=== PATIENT | female | born 1965 | race Caucasian/White ===

== ENCOUNTER 2018-04-27 23:38 | Emergency (ER) | payer BC ==
[2018-04-27] MEDS ORDERED: Cyclobenzaprine 10 MG Tab PO ONE (23:39)
[2018-04-27 23:49] VITALS: BP 147/90
--- NOTE | 2018-04-28 00:06 | EDM.PDOC ---
ED HPI GENERAL MEDICAL PROBLEM - General Chief Complaint: Upper Extremity Injury/Pain Stated Complaint: left forearm injury Time Seen by Provider: 04/27/18 23:45 Source of Information: Reports: Patient History Limitations: Reports: No Limitations - History of Present Illness INITIAL COMMENTS - FREE TEXT/NARRATIVE: Pt. states she fell in the dark, landing on her left hand/ wrist. Now having left wrist/ hand pain. Does not want pain medication, states she will use " wild lettuce." Onset: Today, Sudden Onset Date: 04/27/18 Onset Time: 23:00 Duration: Hour(s):, Constant Location: Reports: Upper Extremity, Left Quality: Reports: Ache, Throbbing Severity: Moderate Improves with: Reports: Cold Therapy, Immobilization Worsens with: Reports: Movement Context: Reports: Other (fall) Associated Symptoms: Reports: No Other Symptoms Left Arm Pain Score (Numeric/FACES): 8 - Related Data Allergies Allergy/AdvReac Type Severity Reaction Status Date / Time aspirin Allergy Bleeding Verified 04/27/18 23:46 ciprofloxacin Allergy Weakness Verified 04/27/18 23:46 corn Allergy Shortness Verified 04/27/18 23:46 of Breath lactase [From Dairy Aid] Allergy Cannot Verified 04/27/18 23:46 Remember levofloxacin [From Levaquin] Allergy Cannot Verified 04/27/18 23:46 Remember metronidazole [From Flagyl] Allergy Cannot Verified 04/27/18 23:46 Remember moxifloxacin HCl Allergy Weakness Verified 04/27/18 23:46 [From Avelox] wheat Allergy Seizure Verified 04/27/18 23:47 latex gloves Allergy Rash Uncoded 04/27/18 23:46 Home Meds: Home Meds Thyroid,Pork [[place] Thyroid] 180 mg PO DAILY 04/27/18 [History] Past Medical History HEENT History: Reports: Allergic Rhinitis, Cataract, Glaucoma, Impaired Vision, Sinusitis Cardiovascular History: Reports: Heart Murmur, Other (See Below) Other Cardiovascular History: "BAD VALVE AT ONE POINT" RENE LEON Respiratory History: Reports: Asthma, Pneumonia, Recurrent, SOB Gastrointestinal History: Reports: Celiac Disease, Chronic Constipation, Chronic Diarrhea, Other (See Below) Other Gastrointestinal History: HERNIA VP PROJECT History: Reports: Endometriosis Musculoskeletal History: Reports: Back Pain, Chronic, Fracture, Gout, Neck Pain , Chronic Neurological History: Reports: Migraines, Seizure Psychiatric History: Reports: Other (See Below) Other Psychiatric History: "HOPELESS SOMETIMES' Endocrine/Metabolic History: Reports: Hypothyroidism Hematologic History: Reports: B12 Deficiency Oncologic (Cancer) History: Reports: Brain, Uterine Dermatologic History: Reports: Other (See Below) Other Dermatologic History: RASHES - Infectious Disease History Infectious Disease History: Reports: Influenza - Past Surgical History GI Surgical History: Reports: Appendectomy, Hernia, Abdominal Neurological Surgical History: Reports: C-Spine, Discectomy, Laminectomy Social & Family History - Tobacco Use Smoking Status *Q: Never Smoker Second Hand Smoke Exposure: No Review of Systems - Review of Systems Review Of Systems: See Below Constitutional: Reports: No Symptoms Eyes: Reports: No Symptoms Ears: Reports: No Symptoms Nose: Reports: No Symptoms Mouth/Throat: Reports: No Symptoms Respiratory: Reports: No Symptoms Cardiovascular: Reports: No Symptoms GI/Abdominal: Reports: No Symptoms Genitourinary: Reports: No Symptoms Musculoskeletal: Reports: Shoulder Pain, Arm Pain, Joint Pain Skin: Reports: No Symptoms Neurological: Reports: No Symptoms Psychiatric: Reports: No Symptoms ED EXAM, GENERAL - Physical Exam Exam: See Below Exam Limited By: No Limitations General Appearance: Alert, WD/WN, No Apparent Distress Nose: Normal Inspection, Normal Mucosa, No Blood Throat/Mouth: Normal Inspection, Normal Lips, Normal Teeth, Normal Gums, Normal Oropharynx, Normal Voice Head: Atraumatic, Normocephalic Neck: Normal Inspection, Supple, Non-Tender Respiratory/Chest: No Respiratory Distress, Lungs Clear, Normal Breath Sounds, No Accessory Muscle Use, Chest Non-Tender Cardiovascular: Normal Peripheral Pulses, Regular Rate, Rhythm, No Edema Peripheral Pulses: 2+: Radial (L) GI/Abdominal: Normal Bowel Sounds, Soft, Non-Tender, No Organomegaly (Female) Exam: Deferred Rectal (Female) Exam: Deferred Extremities: Normal Inspection, Normal Capillary Refill, Limited Range of Motion , Other (tenderness left forearm/ wrist with limited ROM at wrist due to increased pain; able to make a fist and move all fingers; radial pulse 2+; able to flex shoulder and supinate forearm.) Neurological: Alert, Oriented, CN II-XII Intact, Normal Cognition, Normal Gait, No Motor/Sensory Deficits Psychiatric: Normal Affect, Normal Mood Skin Exam: Warm, Dry, Intact, Normal Color Course - Vital Signs Last Recorded V/S: Last Vital Signs Temp 35.7 C 04/27/18 23:39 Pulse 74 04/27/18 23:48 Resp 20 04/27/18 23:39 BP 147/90 H 04/27/18 23:48 Pulse Ox 99 04/27/18 23:39 - Orders/Labs/Meds Orders: Active Orders 24 hr Category Date Time Status Forearm 2V Lt [CR] Stat Exams 04/28/18 00:01 Ordered Humerus Lt [CR] Stat Exams 04/28/18 00:05 Ordered Shoulder Comp Lt [CR] Stat Exams 04/28/18 00:05 Ordered Wrist Comp Min 3V Lt [CR] Stat Exams 04/28/18 00:02 Ordered DRUG SCREEN URINE BIORAD [URCHEM] Stat Lab 04/28/18 00:29 Ordered Labs: Laboratory Tests 04/28/18 Range/Units 00:29 Urine Opiates Screen Negative (NEGATIVE) Ur Oxycodone Screen Negative (NEGATIVE) Urine Methadone Screen Negative (NEGATIVE) Ur Barbiturates Screen Negative (NEGATIVE) U Tricyclic Antidepress Negative (NEGATIVE) Ur Phencyclidine Scrn Negative (NEGATIVE) Ur Amphetamine Screen Negative (NEGATIVE) U Methamphetamines Scrn Negative (NEGATIVE) Urine MDMA Screen Negative (NEGATIVE) U Benzodiazepines Scrn Negative (NEGATIVE) Urine Cocaine Screen Negative (NEGATIVE) U Marijuana (THC) Screen Negative (NEGATIVE) Meds: Medications Discontinued Medications Generic Name Dose Route Start Last Admin Trade Name Freq PRN Reason Stop Dose Admin Cyclobenzaprine HCl 10 mg 04/28/18 01:05 Flexeril PO 04/28/18 01:06 ONETIME ONE Cyclobenzaprine HCl 2 packet 04/28/18 01:43 Take Home: Cyclobenzaprine 10 Mg, 4 Tab Pack PO 04/28/18 01:44 ONETIME ONE - Re-Assessments/Exams Free Text/Narrative Re-Assessment/Exam: stable; neurovascular intact 04/28/18 01:50 Departure - Departure Time of Disposition: 01:51 Disposition: Home, Self-Care 01 Condition: Good Clinical Impression: Fracture of radius - Discharge Information *PRESCRIPTION DRUG MONITORING PROGRAM REVIEWED*: No *COPY OF PRESCRIPTION DRUG MONITORING REPORT IN PATIENT AYDIN: No Instructions: Radial Fracture Referrals: Lukasz Youngblood MD [Primary Care Provider] - Forms: ED Department Discharge Additional Instructions: Follow up with orthopedics on Sunday. Leave splint on until seen by Orthopedics. - Problem List Review Problem List Initiated/Reviewed/Updated: Yes - My Orders Last 24 Hours: My Active Orders 04/28/18 00:01 Forearm 2V Lt [CR] Stat 04/28/18 00:02 Wrist Comp Min 3V Lt [CR] Stat 04/28/18 00:05 Humerus Lt [CR] Stat Shoulder Comp Lt [CR] Stat 04/28/18 00:29 DRUG SCREEN URINE BIORAD [URCHEM] Stat - Assessment/Plan Last 24 Hours: My Active Orders 04/28/18 00:01 Forearm 2V Lt [CR] Stat 04/28/18 00:02 Wrist Comp Min 3V Lt [CR] Stat 04/28/18 00:05 Humerus Lt [CR] Stat Shoulder Comp Lt [CR] Stat 04/28/18 00:29 DRUG SCREEN URINE BIORAD [URCHEM] Stat Assessment:: Left distal radius fracture Sugartong splint applied to left wrist/ forearm; neurovascular intact. Discussed findings of xray with patient and instructed her to follow up with Orthopedics on Sunday. Pt. verbalizes understanding. Plan: Patient to follow up with orthopedics on Sunday. Take Flexeril as p.o. tid as needed for spasms. Ice arm/ wrist 4 times daily.
[2018-04-28] MEDS ORDERED: Cyclobenzaprine 10 MG Tab PO ONE (01:05)
[2018-04-28] MEDS ORDERED: Take Home: Cyclobenzaprine 10 MG Tab, 4 Tab Pack PO ONE (01:43)
== END 2018-04-28 04:03 | disposition home or self-care (01) ==
LOC: CC.ED 23:38
DX: S52.502A Unspecified fracture of the lower end of left radius, initial encounter for closed fracture (principal); J45.909 Unspecified asthma, uncomplicated; Z88.1 Allergy status to other antibiotic agents; Z88.8 Allergy status to other drugs, medicaments and biological substances; Z91.018 Allergy to other foods; Z91.040 Latex allergy status; Z79.899 Other long term (current) drug therapy; Z87.01 Personal history of pneumonia (recurrent); W18.30XA Fall on same level, unspecified, initial encounter
CPT/HCPCS: 29125; 73030-LT; 73060-LT; 73090-LT; 73110-LT; 80305-QW; 99283; A9270-GY

== ENCOUNTER 2018-11-19 17:55 | Emergency (ER) | payer BC ==
--- NOTE | 2018-11-19 18:52 | EDM.PDOC ---
ED HPI GENERAL MEDICAL PROBLEM - General Chief Complaint: General Stated Complaint: GENERAL WEAKNESS Time Seen by Provider: 11/19/18 18:14 Source of Information: Reports: Patient History Limitations: Reports: No Limitations - History of Present Illness INITIAL COMMENTS - FREE TEXT/NARRATIVE: Patient presents to ER with complaints of increased cough, chills, and chest pain. Questions "if having heart attack again". Relates she is pretty sure she had a heart attack in August as she had pain similar to this but chose to stay home and rest as she "didn't want to be put on blood thinners". She has been experiencing a cough. States "her nares, throat and lungs are burned from the cold". Started experiencing chest pain across the left anterior chest today. "last time it radiated down her arm and she wanted to zafar it off this time". Cough has been unproductive. Onset: Today, Gradual Duration: Hour(s): Location: Reports: Chest Quality: Reports: Ache Severity: Mild Improves with: Reports: None Worsens with: Reports: None Associated Symptoms: Reports: Chest Pain, Cough, Fever/Chills, Malaise, Shortness of Breath, Weakness. Denies: Nausea/Vomiting Treatments DIRECTOR OF TRAUMA: Reports: Other (see below) Other Treatments DIRECTOR OF TRAUMA: PEROXIDE - Related Data Allergies Allergy/AdvReac Type Severity Reaction Status Date / Time aspirin Allergy Bleeding Verified 11/19/18 18:01 ciprofloxacin Allergy Weakness Verified 11/19/18 18:01 corn Allergy Shortness Verified 11/19/18 18:01 of Breath lactase [From Dairy Aid] Allergy Cannot Verified 11/19/18 18:01 Remember levofloxacin [From Levaquin] Allergy Cannot Verified 11/19/18 18:01 Remember metronidazole [From Flagyl] Allergy Cannot Verified 11/19/18 18:01 Remember moxifloxacin HCl Allergy Weakness Verified 11/19/18 18:01 [From Avelox] wheat Allergy Seizure Verified 11/19/18 18:01 latex gloves Allergy Rash Uncoded 11/19/18 18:01 Home Meds: Home Meds Thyroid,Pork [[place] Thyroid] 180 mg PO DAILY 04/27/18 [History] Past Medical History HEENT History: Reports: Allergic Rhinitis, Cataract, Glaucoma, Impaired Vision, Sinusitis Cardiovascular History: Reports: Heart Murmur, Other (See Below) Other Cardiovascular History: "BAD VALVE AT ONE POINT" RENE LEON Respiratory History: Reports: Asthma, Pneumonia, Recurrent, SOB Gastrointestinal History: Reports: Celiac Disease, Chronic Constipation, Chronic Diarrhea, Other (See Below) Other Gastrointestinal History: HERNIA [employer]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 Dermatologic History: Reports: Other (See Below) Other Dermatologic History: RASHES - Infectious Disease History Infectious Disease History: Reports: Influenza - Past Surgical History GI Surgical History: Reports: Appendectomy, Hernia, Abdominal Neurological Surgical History: Reports: C-Spine, Discectomy, Laminectomy Social & Family History - Tobacco Use Smoking Status *Q: Never Smoker - Caffeine Use Caffeine Use: Reports: None - Recreational Drug Use Recreational Drug Use: No ED ROS GENERAL - Review of Systems Review Of Systems: See Below Constitutional: Reports: Fever, Chills, Malaise, Weakness, Fatigue. Denies: Decreased Appetite HEENT: Denies: Ear Pain, Sinus Problem, Throat Pain Respiratory: Reports: Shortness of Breath, Cough. Denies: Wheezing Cardiovascular: Reports: Chest Pain, Lightheadedness. Denies: Edema Endocrine: Reports: Fatigue GI/Abdominal: Denies: Abdominal Pain, Nausea, Vomiting : Reports: No Symptoms Musculoskeletal: Reports: Other (leg weakness) Skin: Reports: No Symptoms Neurological: Reports: Weakness ED EXAM, GENERAL - Physical Exam Exam: See Below Exam Limited By: No Limitations General Appearance: Alert, WD/WN, No Apparent Distress Ears: Normal External Exam, Normal TMs Nose: Normal Inspection, Normal Mucosa, No Blood Throat/Mouth: Normal Inspection, Normal Oropharynx Head: Normocephalic Neck: Normal Inspection, Supple, Non-Tender Respiratory/Chest: No Respiratory Distress, Lungs Clear, Normal Breath Sounds Cardiovascular: Regular Rate, Rhythm GI/Abdominal: Normal Bowel Sounds, Soft, Non-Tender Extremities: Normal Inspection, Normal Capillary Refill Neurological: Alert, Oriented Skin Exam: Warm, Dry Course - Vital Signs Last Recorded V/S: Last Vital Signs Temp 97.4 F 11/19/18 19:07 Pulse 79 11/19/18 19:07 Resp 18 11/19/18 19:07 BP 137/81 11/19/18 19:07 Pulse Ox 98 11/19/18 19:07 - Orders/Labs/Meds Orders: Active Orders 24 hr Category Date Time Status EKG Documentation Completion [RC] STAT Care 11/19/18 18:20 Active Chest 2V [CR] Stat Exams 11/19/18 18:19 Ordered EKG 12 Lead [EK] Stat Ther 11/19/18 18:19 Ordered Labs: Laboratory Tests 11/19/18 11/19/18 11/19/18 Range/Units 18:32 18:32 18:32 WBC 7.0 (5.0-10.0) 10^3/uL RBC 5.30 (4.00-5.50) 10^6/uL Hgb 16.0 (12.0-16.0) g/dL Hct 46.9 (37.0-47.0) % MCV 88.5 (82.0-94.0) fL MCH 30.2 (27.0-32.0) pg MCHC 34.1 (33.0-38.0) g/dL RDW Coeff of Joy 11.9 (11.0-15.0) % Plt Count 220 (150-400) 10^3/uL Neut % (Auto) 68.7 (35-85) % Lymph % (Auto) 25.1 (10-55) % [place] % (Auto) 4.6 (0-16) % Eos % (Auto) 1.3 (0-5) % Baso % (Auto) 0.3 (0-3) % Neut # (Auto) 4.83 (1.80-7.00) 10^3/uL Lymph # (Auto) 1.76 (1.00-4.80) 10^3/uL [place] # (Auto) 0.32 (0.00-0.80) 10^3/uL Eos # (Auto) 0.09 (0.00-0.45) 10^3/uL Baso # (Auto) 0.02 10^3/uL D-Dimer, Quantitative 0.73 H (0.00-0.50) Sodium 143 (136-145) mEq/L Potassium 4.0 (3.5-5.0) mEq/L Chloride 104 (98-106) mEq/L Carbon Dioxide 30 (21-32) mmol/L BUN 16 (7-18) mg/dL Creatinine 0.7 (0.6-1.0) mg/dL Est Cr Clr Drug Dosing 102.69 mL/min Estimated GFR (MDRD) > 60 (>=60) mL/min Glucose 97 (75-99) mg/dL Calcium 9.4 (8.4-10.1) mg/dL Lactate Dehydrogenase 197 H (100-190) U/L Creatine Kinase 167 (21-215) U/L Troponin I < 0.017 (0.00-0.06) ng/mL C-Reactive Protein < 0.2 L (0.2-0.8) mg/dL - Re-Assessments/Exams Free Text/Narrative Re-Assessment/Exam: 11/19/18 19:10 Patient is doing fine, no further pain. Labs reviewed, essentially all normal. EKG normal. Chest xray negative. Departure - Departure Time of Disposition: 19:12 Disposition: Home, Self-Care 01 Condition: Good Clinical Impression: Atypical chest pain - Discharge Information *PRESCRIPTION DRUG MONITORING PROGRAM REVIEWED*: No *COPY OF PRESCRIPTION DRUG MONITORING REPORT IN PATIENT AYDIN: No Forms: ED Department Discharge Additional Instructions: 1. Rest 2. Push fluids 3. Tylenol or ibuprofen for generalized achiness or fever 4. Follow up if chest pain returns or has increased shortness of breath. - My Orders Last 24 Hours: My Active Orders 11/19/18 18:19 Chest 2V [CR] Stat EKG 12 Lead [EK] Stat 11/19/18 18:20 EKG Documentation Completion [RC] STAT - Assessment/Plan Last 24 Hours: My Active Orders 11/19/18 18:19 Chest 2V [CR] Stat EKG 12 Lead [EK] Stat 11/19/18 18:20 EKG Documentation Completion [RC] STAT
[2018-11-19 19:00] LABS: CHLORIDE,CL 104 mEq/L (98-106); SODIUM,NA 143 mEq/L (136-145)
[2018-11-19 19:08] VITALS: BP 137/81
== END 2018-11-19 19:20 | disposition home or self-care (01) ==
LOC: CC.ED 17:55
DX: R07.89 Other chest pain (principal)
CPT/HCPCS: 36415; 71046; 80048; 82550; 83615; 84484; 85025; 85379; 86140; 87804; 93005; 99285-25

== ENCOUNTER 2021-10-29 18:33 | Emergency (ER) | payer OTHER, BC ==
[2021-10-29 18:41] VITALS: BP 178/98; PULSE 97
[2021-10-29] MEDS ORDERED: Take Home: Cyclobenzaprine 10 MG Tab, 4 Tab Pack PO ONE (19:02)
== END 2021-10-29 19:24 | disposition home or self-care (01) ==
LOC: CC.ED 18:33
DX: S50.12XA Contusion of left forearm, initial encounter (principal); M25.511 Pain in right shoulder; M25.512 Pain in left shoulder; M54.6 Pain in thoracic spine; M79.645 Pain in left finger(s); J45.909 Unspecified asthma, uncomplicated; M10.9 Gout, unspecified; E03.9 Hypothyroidism, unspecified; Z87.891 Personal history of nicotine dependence; Z88.8 Allergy status to other drugs, medicaments and biological substances; Z88.1 Allergy status to other antibiotic agents; Z91.018 Allergy to other foods; Z91.040 Latex allergy status; Z79.899 Other long term (current) drug therapy; Y04.0XXA Assault by unarmed brawl or fight, initial encounter; Y92.89 Other specified places as the place of occurrence of the external cause; Y99.0 Civilian activity done for income or pay
CPT/HCPCS: 99283; A9270-GY

== ENCOUNTER 2023-10-28 04:26 | Emergency (ER) | payer BC ==
[2023-10-28 04:30] VITALS: BP 149/80; PULSE 87
[2023-10-28] MEDS: Diphtheria,Pertussis(Acell),Tetanus Vaccine 0.5 ML Syringe IM ONE (04:52)
[2023-10-28] MEDS: Lidocaine 1% 5 ML VIAL INJECT ONE (04:52)
[2023-10-28] MEDS: Take Home: Amoxicillin/Clavulanate K 875-125 MG Tab, 2 Tab Pack PO ONE ×2 (05:19→05:20)
[2023-10-28] MEDS: Take Home: Acetaminophen/HYDROcodone 325-5 MG, 2 Tab Pack PO ONE (05:20)
== END 2023-10-28 05:41 | disposition home or self-care (01) ==
LOC: CC.ED 04:26
DX: S31.154A Open bite of abdominal wall, left lower quadrant without penetration into peritoneal cavity, initial encounter (principal); Z88.6 Allergy status to analgesic agent; Z88.1 Allergy status to other antibiotic agents; Z91.018 Allergy to other foods; Z88.8 Allergy status to other drugs, medicaments and biological substances; Z23 Encounter for immunization; Z91.040 Latex allergy status; W54.0XXA Bitten by dog, initial encounter
CPT/HCPCS: 12001; 90471; 90715; 99282-25; 99283; A9270-GY; J3490

== ENCOUNTER 2024-09-02 21:31 | Emergency (ER) | payer BC ==
[2024-09-02] MEDS: Lidocaine 1% 5 ML VIAL INJECT ONE (21:42)
[2024-09-02] MEDS: Amoxicillin 500 MG Cap PO ONE (21:54)
[2024-09-02] MEDS: Take Home: Acetaminophen/HYDROcodone 325-5 MG, 2 Tab Pack PO ONE (21:55)
[2024-09-03 02:27] VITALS: BP 143/87; PULSE 102
== END 2024-09-02 22:00 | disposition home or self-care (01) ==
LOC: CC.ED 21:31
DX: K04.7 Periapical abscess without sinus (principal); J45.909 Unspecified asthma, uncomplicated; E03.9 Hypothyroidism, unspecified; Z88.1 Allergy status to other antibiotic agents; Z91.018 Allergy to other foods; Z88.8 Allergy status to other drugs, medicaments and biological substances; Z91.011 Allergy to milk products; Z91.048 Other nonmedicinal substance allergy status; Z79.899 Other long term (current) drug therapy; Z90.49 Acquired absence of other specified parts of digestive tract
CPT/HCPCS: 10060; 41800; 87070; 99283; 99283-25; A9270-GY; J3490